=== PATIENT | male | born 1950 | race African-American/Black ===

== ENCOUNTER → 2020-08-09 | Outpatient (CLI) | payer MEDICARE, OTHER ==
--- NOTE | 2020-08-09 15:06 | Diagnostic Imaging Report ---
PROCEDURE: US Thyroid. TECHNIQUE: Multiple real-time grayscale images were obtained of the thyroid in various projections. INDICATION: Nontoxic goiter. COMPARISON: None available. FINDINGS: The right lobe of the thyroid gland measures 4.8 x 2.1 x 1.8 cm. It maintains a homogeneous echotexture without discrete nodule. The left lobe of the thyroid gland measures 5.1 x 2.2 x 1.4 cm. A 0.6 x 0.6 x 0.6 cm mixed echogenicity round solid nodule is present within the mid left thyroid lobe. This demonstrates some internal calcifications. This demonstrates circumscribed and lobulated margins. The isthmus is unremarkable. IMPRESSION: 0.6 cm TI-RADS 5 nodule within the mid left thyroid lobe. Recommend a follow-up ultrasound in 6 to 12 months to re-evaluate. The right lobe of the thyroid gland is unremarkable. Dictated by: Dictated on workstation # [id number]
== END ==
LOC: RAD FS 11:11
PROVIDERS: ATTEND Emergency Medicine
DX: E04.1 Nontoxic single thyroid nodule (principal)
CPT/HCPCS: 76536

== ENCOUNTER 2020-11-03 09:52 | Emergency (ER) | payer MEDICARE, OTHER ==
[~2020-11-03] VITALS: Ht 177.8 cm; Wt 86.2 kg
[2020-11-03] MEDS ORDERED: NS IV 1000 ML 1,000 ML IV STA (10:05)
[2020-11-03 10:17] LABS: BASOPHILS % (AUTO) 1 % (0-10); EOSINOPHILS # (AUTO) 0.4 10^3/uL (0.0-0.3); EOSINOPHILS % (AUTO) 4 % (0-10); HEMATOCRIT 51 % (40-54); HEMOGLOBIN 17.1 G/DL (13.3-17.7); LYMPHOCYTES # (AUTO) 2.4 X 10^3 (1.0-4.0); LYMPHOCYTES % (AUTO) 22 % (12-44); MEAN CORPUSCULAR HEMOGLOBIN 30 PG (25-34); MEAN CORPUSCULAR HGB CONC 33 G/DL (32-36); MEAN CORPUSCULAR VOLUME 90 FL (80-99); MEAN PLATELET VOLUME 9.4 FL (7.4-10.4); MONOCYTES # (AUTO) 0.9 X 10^3 (0.0-1.0); MONOCYTES % (AUTO) 8 % (0-12); NEUTROPHILS % (AUTO) 65 % (42-75); PLATELET COUNT 251 10^3/uL (130-400); WHITE BLOOD COUNT 10.8 10^3/uL (4.3-11.0)
[2020-11-03 10:18] LABS: BASOPHILS # (AUTO) 0.1 10^3/uL (0.0-0.1)
[2020-11-03 10:20] LABS: BILIRUBIN,URINE NEGATIVE (NEGATIVE); CLARITY,URINE CLEAR; COLOR,URINE YELLOW; GLUCOSE, URINE (UA) NEGATIVE (NEGATIVE); KETONES,URINE NEGATIVE (NEGATIVE); LEUKOCYTE ESTERASE ,URINE NEGATIVE (NEGATIVE); NITRITE,URINE NEGATIVE (NEGATIVE); PH,URINE 5.5 (5-9); PROTEIN,URINE NEGATIVE (NEGATIVE)
--- NOTE | 2020-11-03 10:29 | Diagnostic Imaging Report ---
EXAMINATION: CT head without contrast. TECHNIQUE: Multiple contiguous axial images were obtained through the brain without the use of intravenous contrast. All CT scans use one or more of the following dose optimizing techniques: automated exposure control, MA and/or KvP adjustment based on patient size and exam type or iterative reconstruction. HISTORY: Dizziness. Lightheadedness. Elevated blood pressure. COMPARISON: None available. FINDINGS: No large acute territorial ischemia, mass, or hemorrhage. No midline shift or mass effect. The ventricles, cortical sulci, and basilar cisterns are patent and unremarkable. The orbits are normal. Small amount retained secretions are seen in the left frontal sinus. Mastoid air cells are clear. No soft tissue abnormality is seen. No osseus lesions or fractures are seen. IMPRESSION: 1. No large acute territorial ischemia, mass, or hemorrhage. 2. Small amount of retained secretions in the left frontal sinus. Dictated by: Dictated on workstation # [id number]
[2020-11-03 10:30] LABS: BACTERIA,URINE NEGATIVE /HPF; SQUAMOUS EPITHELIAL CELL,UR 0-2 /HPF
--- NOTE | 2020-11-03 10:30 | Diagnostic Imaging Report ---
Indication: Cough. Time of exam 10:05 AM No prior studies are available for comparison. The heart size is normal. Lungs are clear. No infiltrates are seen. There is no effusion or pneumothorax. IMPRESSION: No acute cardiopulmonary process is detected. Dictated by: Dictated on workstation # [id number]
--- NOTE | 2020-11-03 10:33 | ED General ---
General Chief Complaint: Dizziness/Syncope Stated Complaint: LIGHTHEADED Nursing Triage Note: Patient reports he began to feel lightheaded when he got up this morning. He reports a history of hypertension and non-insulin dependent diabetes, he also states he works out in the heat and is concerned he may be dehydrated. Source of Information: Patient History of Present Illness Date Seen by Provider: Nov 03, 2020 Time Seen by Provider: 09:54 Initial Comments 70-year-old male presenting with concerns for feeling lightheaded when he got up this morning. He has a history of high blood pressure and diabetes. He has felt this way with elevated blood pressure in the past. He also has been working outside doing a lot of yard work and mowing lawns and thought he might be dehydrated. He denies any nausea, vomiting, chest pain, shortness of breath, cough, pain with urination, abdominal pain, diarrhea, constipation. He did take his blood pressure and diabetes medicines prior to coming to the emergency department. He denies any numbness or weakness in his arms or legs. He does have some occasional blurred vision but states that is normal currently. Severity: Mild Associated Systoms: No Chest Pain, No Cough, No Diaphoresis, No Fever/Chills, No Headaches, No Loss of Appetite, No Malaise, No Nausea/Vomiting, No Rash, No Seizure, No Shortness of Air, No Syncope, No Weakness Allergies and Home Medications Allergies Coded Allergies: prednisone (Verified Allergy, Intermediate, 11/03/20) Intractable Hiccups Patient Home Medication List Home Medication List Reviewed: Yes Review of Systems Review of Systems Constitutional: No chills, No fever EENTM: see HPI Respiratory: no symptoms reported Cardiovascular: no symptoms reported Gastrointestinal: no symptoms reported Genitourinary: no symptoms reported Musculoskeletal: no symptoms reported Skin: no symptoms reported Psychiatric/Neurological: No Symptoms Reported Hematologic/Lymphatic: Denies Blood Clots Past Kvjiqnj-Uovzja-Kfxrch Hx Patient Social History Tobacco Use?: No Substance use?: No Alcohol Use?: No Pt feels they are or have been: No Immunizations Up To Date First/Initial COVID19 Vaccinat: 08/05/2020 Second COVID19 Vaccination Bobby: 09/03/2020 COVID19 Vaccine Relocation Coordinator: Ryan Past Medical History Surgery/Hospitalization HX: Patient reports a history of non-insulin dependent diabetes and hypertension. He denies any past surgeries. Respiratory: No Cardiac: Yes High Cholesterol, Hypertension Neurological: No Genitourinary: No Gastrointestinal: No Musculoskeletal: No Endocrine: Yes Diabetes, Non-Insulin dep Physical Exam Vital Signs Vital Signs - First Documented 11/03/20 09:53 Temp 36.8 Pulse 75 Resp 20 B/P (MAP) 181/87 (118) Pulse Ox 95 O2 Delivery Room Air Capillary Refill : Less Than 3 Seconds Height, Weight, BMI Height: '" Weight: lbs. oz. kg; 27.00 BMI Method: General Appearance: No Apparent Distress, WD/WN Eyes: Bilateral Eye PERRL, Bilateral Eye EOMI HEENT: PERRL/EOMI, Pharynx Normal Neck: Full Range of Motion, Normal Inspection, Non Tender, Supple; No Carotid Bruit Respiratory: Chest Non Tender, Lungs Clear, Normal Breath Sounds, No Accessory Muscle Use, No Respiratory Distress Cardiovascular: Regular Rate, Rhythm, Normal Peripheral Pulses Gastrointestinal: Normal Bowel Sounds, No Pulsatile Mass, Non Tender, Soft Rectal: Deferred Extremity: Normal Capillary Refill, Normal Inspection, Normal Range of Motion, Non Tender, No Calf Tenderness, No Pedal Edema Neurologic/Psychiatric: Alert, Oriented x3, No Motor/Sensory Deficits, Normal Mood/Affect, shake loader II-XII Norm as Tested Skin: Normal Color, Warm/Dry Progress/Results/Core Measures Suspected Sepsis SIRS Temperature: Pulse: 75 Respiratory Rate: 20 Laboratory Tests 11/03/20 10:05: White Blood Count 10.8 Blood Pressure 181 /87 Mean: 118 Laboratory Tests 11/03/20 10:05: Creatinine 1.26, Platelet Count 251, Total Bilirubin 0.7 Results/Orders Lab Results Laboratory Tests Test 11/03/20 10:05 11/03/20 10:06 11/03/20 10:10 Range/Units White Blood Count 10.8 4.3-11.0 10^3/uL Red Blood Count 5.70 4.35-5.85 10^6/uL Hemoglobin 17.1 13.3-17.7 G/DL Hematocrit 51 40-54 % Mean Corpuscular Volume 90 80-99 FL Mean Corpuscular Hemoglobin 30 25-34 PG Mean Corpuscular Hemoglobin Concent 33 32-36 G/DL Red Cell Distribution Width 12.8 10.0-14.5 % Platelet Count 251 130-400 10^3/uL Mean Platelet Volume 9.4 7.4-10.4 FL Immature Granulocyte % (Auto) 1 % Neutrophils (%) (Auto) 65 42-75 % Lymphocytes (%) (Auto) 22 12-44 % Monocytes (%) (Auto) 8 0-12 % Eosinophils (%) (Auto) 4 0-10 % Basophils (%) (Auto) 1 0-10 % Neutrophils # (Auto) 7.0 1.8-7.8 X 10^3 Lymphocytes # (Auto) 2.4 1.0-4.0 X 10^3 Monocytes # (Auto) 0.9 0.0-1.0 X 10^3 Eosinophils # (Auto) 0.4 H 0.0-0.3 10^3/uL Basophils # (Auto) 0.1 0.0-0.1 10^3/uL Immature Granulocyte # (Auto) 0.1 0.0-0.1 10^3/uL Sodium Level 138 135-145 MMOL/L Potassium Level 4.2 3.6-5.0 MMOL/L Chloride Level 101 98-107 MMOL/L Carbon Dioxide Level 22 21-32 MMOL/L Anion Gap 15 H 5-14 MMOL/L Blood Urea Nitrogen 17 7-18 MG/DL Creatinine 1.26 0.60-1.30 MG/DL Estimat Glomerular Filtration Rate > 60 BUN/Creatinine Ratio 13 Glucose Level 240 H 70-105 MG/DL Calcium Level 9.7 8.5-10.1 MG/DL Corrected Calcium 9.3 8.5-10.1 MG/DL Magnesium Level 1.9 1.6-2.4 MG/DL Total Bilirubin 0.7 0.1-1.0 MG/DL Aspartate Amino Transf (AST/SGOT) 10 5-34 U/L Alanine Aminotransferase (ALT/SGPT) 16 0-55 U/L Alkaline Phosphatase 53 40-136 U/L Troponin I < 0.30 <0.30 NG/ML Pro-B-Type Natriuretic Peptide 6.6 <75.0 PG/ML Total Protein 7.4 6.4-8.2 GM/DL Albumin 4.5 3.2-4.5 GM/DL Glucometer 232 H 70-110 MG/DL Urine Color YELLOW Urine Clarity CLEAR Urine pH 5.5 5-9 Urine Specific [place] 1.025 H 1.016-1.022 Urine Protein NEGATIVE NEGATIVE Urine Glucose (UA) NEGATIVE NEGATIVE Urine Ketones NEGATIVE NEGATIVE Urine Nitrite NEGATIVE NEGATIVE Urine Bilirubin NEGATIVE NEGATIVE Urine Urobilinogen 0.2 < = 1.0 MG/DL Urine Leukocyte Esterase NEGATIVE NEGATIVE Urine RBC (Auto) NEGATIVE NEGATIVE Urine RBC NONE /HPF Urine WBC NONE /HPF Urine Squamous Epithelial Cells 0-2 /HPF Urine Crystals NONE /LPF Urine Bacteria NEGATIVE /HPF Urine Casts NONE /LPF Urine Mucus NEGATIVE /LPF Urine Culture Indicated NO My Orders Orders - VIOLETA ACE MD Cbc With Automated Diff (11/03/20 10:05) Magnesium (11/03/20 10:05) Chest 1 View Ap/Pa Only (11/03/20 10:05) Ekg Tracing (11/03/20 10:05) Comprehensive Metabolic Panel (11/03/20 10:05) O2 (11/03/20 10:05) Monitor-Rhythm Ecg Trace Only (11/03/20 10:05) Ed Iv/Invasive Line Start (11/03/20 10:05) Troponin I Fs (11/03/20 10:05) Probnp Fs (11/03/20 10:05) Ua Culture If Indicated (11/03/20 10:05) Accucheck Stat ONCE (11/03/20 10:05) Ct Head Wo (11/03/20 10:05) Ns Iv 1000 Ml (Sodium Chloride 0.9%) (11/03/20 10:05) Vital Signs/I&O 11/03/20 11/03/20 09:53 11:33 Temp 36.8 Pulse 75 71 Resp 20 16 B/P (MAP) 181/87 (118) 113/79 Pulse Ox 95 95 O2 Delivery Room Air Room Air Capillary Refill : Less Than 3 Seconds Blood Pressure Mean: 118 Point of Care Testing Finger Stick Blood Glucose: 232 Blood Glucose Action Taken: Dr. Ace notified. Progress Note #1: Progress Note Check labs as well as electrocardiogram and with his complaint of being lightheaded and occasionally seeing blurred vision obtain a CT scan of his head. Give IV fluids for hydration in case his fluids were little low. Differential diagnosis includes stroke, heart attack, labile hypertension, pneumonia, electrolyte imbalance, dehydration, anxiety, hyperglycemia Progress Note #2: Progress Note Electrocardiogram does not show any acute ischemic changes or ST elevation. His chest x-ray and CT head were also not showing any acute process. With his labs were stable without acute significant abnormality. His cardiac enzymes were normal. His blood pressure was coming down and going to a normal level without any intervention. Progress Note #3: Progress Note Urinalysis did show mild elevation of the specific gravity to indicate mild dehydration. He was feeling better as he was resting in the bed getting fluids. Encouraged to stay well-hydrated and take medicines as prescribed. Reassured patient there is no indication of stroke, heart attack, pneumonia. Encouraged to check back with the clinic for continued concerns and problems ECG Initial ECG Impression Date: Nov 03, 2020 Initial ECG Impression Time: 10:22 Initial ECG Rate: 66 Initial ECG Rhythm: Normal Sinus Initial ECG Comparisson: No Previous ECG Available Comment Normal sinus rhythm with heart rate of 66 bpm. FL interval [address] elevation. QT interval 388 ms with a QTc interval 407 ms. There is no prior tracing available for comparison. Diagnostic Imaging Diagonstic Imaging: Xray Plain Films/CT/US/NM/MRI: chest Comments [facility] [place], [place] NAME: IGNACIO METCALF [facility] REC#: [id number] PT STATUS: REG ER : 1950 PHYSICIAN: VIOLETA ACE MD ADMIT DATE: 11/03/20/ER FS Draft Date of Exam:11/03/20 CHEST 1 VIEW AP/PA ONLY Indication: Cough. Time of exam 10:05 AM No prior studies are available for comparison. The heart size is normal. Lungs are clear. No infiltrates are seen. There is no effusion or pneumothorax. IMPRESSION: No acute cardiopulmonary process is detected. Dictated on workstation # [id number] Dict: 11/03/20 1028 Trans: 11/03/20 1029 [facility] [id number] Interpreted by: SOFIE PRATT MD Electronically signed by: Reviewed: Reviewed by Me Diagonstic Imaging: CT Plain Films/CT/US/NM/MRI: head Comments [facility] [place] NAME: IGNACIO METCALF [facility] REC#: [id number] PT STATUS: REG ER : 1950 PHYSICIAN: VIOLETA ACE MD ADMIT DATE: 11/03/20/ER FS Signed Date of Exam:11/03/20 CT HEAD WO EXAMINATION: CT head without contrast. TECHNIQUE: Multiple contiguous axial images were obtained through the brain without the use of intravenous contrast. All CT scans use one or more of the following dose optimizing techniques: automated exposure control, MA and/or KvP adjustment based on patient size and exam type or iterative reconstruction. HISTORY: Dizziness. Lightheadedness. Elevated blood pressure. COMPARISON: None available. FINDINGS: No large acute territorial ischemia, mass, or hemorrhage. No midline shift or mass effect. The ventricles, cortical sulci, and basilar cisterns are patent and unremarkable. The orbits are normal. Small amount retained secretions are seen in the left frontal sinus. Mastoid air cells are clear. No soft tissue abnormality is seen. No osseus lesions or fractures are seen. IMPRESSION: 1. No large acute territorial ischemia, mass, or hemorrhage. 2. Small amount of retained secretions in the left frontal sinus. Dictated by: Dictated on workstation # [id number] Dict: 11/03/20 1026 Trans: 11/03/20 1042 [facility] [id number] Interpreted by: ALEX KUMAR DO Electronically signed by: ALEX KUMAR DO 11/03/20 1042 Reviewed: Reviewed by Me Departure Impression Primary Impression: Labile hypertension Additional Impression: Dehydration Disposition: 01 HOME, SELF-CARE Condition: Improved Departure-Patient Inst. Decision time for Depature: 11:27 Referrals: LAYO MONK DO (PCP/Family) Primary Care Physician Patient Instructions: Dehydration, Adult ED, High Blood Pressure ED Add. Discharge Instructions: Make sure to stay well hydrated and drink plenty of water Follow up with clinic for your blood pressure and if having continued symptoms/concerns All discharge instructions reviewed with patient and/or family. Voiced understanding. VIOLETA ACE MD Nov 03, 2020 10:32
[2020-11-03 10:48] LABS: CARBON DIOXIDE 22 MMOL/L (21-32); CHLORIDE 101 MMOL/L (98-107); POTASSIUM 4.2 MMOL/L (3.6-5.0); SODIUM 138 MMOL/L (135-145)
[2020-11-03 10:49] LABS: ALANINE AMINOTRANSFERASE 16 U/L (0-55); ALBUMIN 4.5 GM/DL (3.2-4.5); ALKALINE PHOSPHATASE 53 U/L (40-136); BILIRUBIN,TOTAL 0.7 MG/DL (0.1-1.0); BUN/CREATININE RATIO 13; CALCIUM 9.7 MG/DL (8.5-10.1); CREATININE SERUM 1.26 MG/DL (0.60-1.30); GFR ESTIMATED > 60; GLUCOSE 240 MG/DL (70-105); MAGNESIUM 1.9 MG/DL (1.6-2.4); TOTAL PROTEIN 7.4 GM/DL (6.4-8.2)
[2020-11-03 11:33] VITALS: BP 113/79
== END 2020-11-03 11:36 | disposition home or self-care (01) ==
LOC: EDUNIT# 09:52 → ER FS 09:53
DX: I10 Essential (primary) hypertension (principal); E86.0 Dehydration; E11.9 Type 2 diabetes mellitus without complications
CPT/HCPCS: 36415; 70450; 71045; 80053; 81000; 82947; 83735; 83880; 84484; 85025; 93005; 93041; 96360

== ENCOUNTER 2022-09-29 04:28 | Emergency (ER) | payer MEDICARE, OTHER ==
[~2022-09-29] VITALS: Ht 177 cm; Wt 81.0 kg
[2022-09-29 04:42] VITALS: BP 169/99
--- NOTE | 2022-09-29 04:48 | ED Integumentary General ---
General Chief Complaint: Skin/Wound Problems Stated Complaint: POSS SPIDER BITE Source: patient Exam Limitations: no limitations History of Present Illness Date Seen by Provider: September 29, 2022 Time Seen by Provider: 04:38 Initial Comments 72-year-old male presents to the emergency department today for what he believes to be a spider bite in his mid central chest. He was concerned because his brother got a spider bite on his knee that had infected and ended up in the hospital for a long period of time. Symptoms present for about 3 days it is significantly itchy states has been from sleep at night scratching. No fevers chills nausea or vomiting. All other systems reviewed and negative except documented per HPI. Voice recognition software was used to help create this chart Allergies and Home Medications Allergies Coded Allergies: prednisone (Verified Allergy, Intermediate, 11/03/20) Intractable Hiccups Patient Home Medication List Home Medication List Reviewed: Yes Review of Systems Review of Systems Constitutional: see HPI Past Xovgyqd-Wndypq-Zessuq Hx Patient Social History Tobacco Use?: No Use of E-Cig and/or Vaping dev: No Substance use?: No Alcohol Use?: No Past Medical History Respiratory: No Cardiac: Yes High Cholesterol, Hypertension Neurological: No Genitourinary: No Gastrointestinal: No Musculoskeletal: No Endocrine: Yes Diabetes, Non-Insulin dep Family Medical History Reviewed Nursing Family Hx No Pertinent Family Hx Physical Exam Vital Signs Capillary Refill : General Appearance: WD/WN, no apparent distress Neck: non-tender, normal inspection; No lymphadenopathy (R), No lymphadenopathy (L) Cardiovascular: regular rate, rhythm, no murmur Respiratory: chest non-tender, lungs clear, normal breath sounds, other (Midsternal is a skin wheal approximately 3 cm diameter. No erythema. No flu ctuance. No induration.) Gastrointestinal: normal bowel sounds, non tender, soft Neurologic/Psychiatric: alert, oriented x 3 Skin: other (Skin findings as described above) Departure Communication (Admissions) Patient is hemodynamically stable. No evidence for infection, abscess. He has a skin wheal in the area of likely local inflammation. I believe this likely is a spider bite however he has no systemic symptoms and again no abscess. For the itching I recommend Benadryl hydrocortisone cream alternating. Impression Primary Impression: Wheal Additional Impression: Pruritus Disposition: 01 HOME, SELF-CARE Condition: Stable Departure-Patient Inst. Referrals: SELF,CINDY PARKINSON (PCP/Family) Primary Care Physician Patient Instructions: Topical corticosteroid medicines Add. Discharge Instructions: Alternate hydrocortisone and Benadryl creams to help with the itching. There is no evidence of infection currently however if you right redness that is spreading or streaking will need to return to the emergency department. Follow- up with your primary doctor for any nonemergent needs. All discharge instructions reviewed with patient and/or family. Voiced understanding. JEREL MARTINEZ DO September 29, 2022 04:48
== END 2022-09-29 04:54 | disposition home or self-care (01) ==
LOC: EDUNIT# 04:28 → ER FS 04:31
DX: L50.9 Urticaria, unspecified (principal); L29.9 Pruritus, unspecified
CPT/HCPCS: 99281